=== PATIENT | female | born 1940 | race Caucasian/White ===

== ENCOUNTER 2018-05-23 15:26 | Emergency (ER) | payer OTHER ==
[~2018-05-23] VITALS: Ht 160 cm; Wt 68.9 kg
[2018-05-23] MEDS ORDERED: TOPROL XL100 MG (15:46)
[2018-05-23] MEDS ORDERED: COZAAR50 MG (15:47)
[2018-05-23] MEDS ORDERED: SYNTHROID100 MCG (15:47)
[2018-05-23] MEDS ORDERED: NAMENDA5 MG (15:47)
[2018-05-23] MEDS ORDERED: NAMENDA10 MG (15:50)
== END 2018-05-23 19:34 | disposition home or self-care (01) ==
LOC: ER 15:26
DX: R42 Dizziness and giddiness (principal)

== ENCOUNTER 2018-05-29 10:35 | Outpatient (CLI) | payer OTHER ==
[~2018-05-29 10:35] MED LIST: COZAAR50 MG; NAMENDA10 MG; NAMENDA5 MG; SYNTHROID100 MCG; TOPROL XL100 MG
== END 2018-05-29 10:48 | disposition home or self-care (01) ==
LOC: RAD 10:35
DX: M54.5 Low back pain (principal); M81.0 Age-related osteoporosis without current pathological fracture
CPT/HCPCS: 72148

== ENCOUNTER 2018-12-11 11:33 | Outpatient (CLI) | payer OTHER | END 2018-12-11 11:39 | disposition home or self-care (01) | LOC: LAB 11:33 | DX: E78.2 Mixed hyperlipidemia (principal); E03.8 Other specified hypothyroidism; I10 Essential (primary) hypertension ==

== ENCOUNTER 2018-12-11 12:34 | Outpatient (CLI) | payer OTHER | END 2018-12-11 15:43 | disposition home or self-care (01) | LOC: RAD 12:34 | DX: M75.121 Complete rotator cuff tear or rupture of right shoulder, not specified as traumatic (principal) ==

== ENCOUNTER 2019-03-12 05:56 | Emergency (ER) | payer OTHER ==
[~2019-03-12] VITALS: Ht 175.3 cm; Wt 74.8 kg
== END 2019-03-12 13:35 | disposition home or self-care (01) ==
LOC: ER 05:56
DX: R42 Dizziness and giddiness (principal); R51 Headache